=== PATIENT | female | born 1995 | race African-American/Black ===

== ENCOUNTER 2021-10-16 09:47 | Emergency (ER) | payer OTHER, SELFPAY ==
--- NOTE | ~2021-10-16 | XR_ITS ---
XR ankle RT min 3V DATE: 10/16/2021 10:24 INDICATION: Right ankle injury from fall 2 days ago. Pain and swelling. TECHNIQUE: 4 views COMPARISON: None FINDINGS: There is mild lateral soft tissue swelling of the ankle. No fracture or dislocation of the ankle or disruption of the ankle mortise is detected. IMPRESSION: Mild lateral soft tissue swelling; no fracture or dislocation Reviewed, dictated and finalized at location A.
[2021-10-16 09:49] VITALS: BP 127/89; PULSE 87; RESP 14; TEMP 36.3; O2SAT 100
--- NOTE | 2021-10-16 11:10 | ED.GENADULT ---
HPI - General Adult General Chief complaint: Extremity Injury, Lower Stated complaint: fell off parade float, right ankle injury Time Seen by Provider: 10/16/21 10:57 History of Present Illness HPI narrative: 26-year-old female presenting to the emergency department for evaluation of right ankle pain. Patient states yesterday she fell off a parade float twice and injured her right ankle. Patient denies striking her head denies any loss conscious. Related Data Allergies Allergy/AdvReac Type Severity Reaction Status Date / Time nitrofurantoin Allergy Severe Swelling Verified 10/16/21 09:48 [From Macrobid] of Lip/Tongue/Throat Review of Systems Review of Systems: CONSTITUTIONAL: Denies fever, chills, or sweats. EYES: Denies visual changes, redness, or discharge. ENT: Denies rhinorrhea, congestion, sore throat, or otalgia. CARDIOVASCULAR: Denies chest pain, palpitations, or edema. RESPIRATORY: Denies cough or dyspnea. GASTROINTESTINAL: Denies abdominal pain, nausea, vomiting, or diarrhea. GENITOURINARY: Denies dysuria or hematuria. SKIN: Denies rash or itching. MUSCULOSKELETAL: See HPI NEUROLOGIC: Denies headache, numbness, or weakness. PSYCHIATRIC: Denies anxiety or depression. Exam Narrative: APPEARANCE: Well appearing, no pain, no distress, well-nourished. HEAD: normocephalic, atraumatic. NECK: Supple. No adenopathy, no masses. RESPIRATORY: Airway patent, respirations nonlabored. Clear to auscultation bilaterally, no rales, rhonchi, wheezing. CARDIOVASCULAR: Regular rate and rhythm without murmurs rubs or gallops. ABDOMINAL: Soft, nontender, nondistended, normal bowel sounds MUSCULOSKELETAL: No tenderness to proximal or distal knee. No tenderness to proximal tib-fib. Patient does have tenderness to lateral and medial ankle. No tenderness to foot NEURO: Alert. Cranial nerves II through XII intact. Grossly intact SKIN: Warm, dry. Normal Color Course Vital Signs Vital signs: Vital Signs Temperature 97.4 F L 10/16/21 09:49 Pulse Rate 87 10/16/21 09:49 Respiratory Rate 14 10/16/21 09:49 Blood Pressure 127/89 10/16/21 09:49 Pulse Oximetry 100 10/16/21 09:49 Oxygen Delivery Room Air 10/16/21 09:49 Temperature 97.4 F L 10/16/21 09:49 Pulse Rate 87 10/16/21 09:49 Respiratory Rate 14 10/16/21 09:49 Blood Pressure 127/89 10/16/21 09:49 Pulse Oximetry 100 10/16/21 09:49 Oxygen Delivery Room Air 10/16/21 09:49 Medical Decision Making Vital Signs Vital Signs: Vital Signs Temperature 97.4 F L 10/16/21 09:49 Pulse Rate 87 10/16/21 09:49 Respiratory Rate 14 10/16/21 09:49 Blood Pressure 127/89 10/16/21 09:49 Pulse Oximetry 100 10/16/21 09:49 Oxygen Delivery Room Air 10/16/21 09:49 Temperature 97.4 F L 10/16/21 09:49 Pulse Rate 87 10/16/21 09:49 Respiratory Rate 14 10/16/21 09:49 Blood Pressure 127/89 10/16/21 09:49 Pulse Oximetry 100 10/16/21 09:49 Oxygen Delivery Room Air 10/16/21 09:49 Imaging Data Radiologist's impression: Impressions Ankle X-Ray 10/16/21 10:40 IMPRESSION: Mild lateral soft tissue swelling; no fracture or dislocation Discharge Plan Discharge Clinical Impression: Ankle sprain and strain Patient Disposition: Home, Self-Care Condition: Stable Instructions: Antibiotic Form, Ankle Sprain (ED) Additional Instructions: Michael wrap as directed. Tylenol and ibuprofen for pain control. Crutches for limited weightbearing for the next 3 to 5 days. Have close follow-up with your primary care physician. Follow-up/Referrals: George Crenshaw MD [Physician] - PHYSICIAN NOT ON STAFF,NONSTAFF [Primary Care Provider] - Stand Alone Forms: Work/School Release IP
== END 2021-10-16 11:30 | disposition home or self-care (01) ==
PROVIDERS: Emergency Provider Emergency Medicine
DX: S93.401A Sprain of unspecified ligament of right ankle, initial encounter (principal); S96.911A Strain of unspecified muscle and tendon at ankle and foot level, right foot, initial encounter; W17.89XA Other fall from one level to another, initial encounter
CPT/HCPCS: 73610; 99283

== ENCOUNTER 2022-02-09 12:47 | Emergency (ER) | payer OTHER, SELFPAY ==
--- NOTE | 2022-02-09 13:21 | ED.FEMALEGU ---
HPI - Female Genitourinary General Chief complaint: Urogenital-Female Stated complaint: grey infmorales Time Seen by Provider: 02/09/22 14:30 Source: patient and RN notes reviewed Mode of arrival: ambulatory Limitations: no limitations History of Present Illness HPI Narrative: 26-year-old female presents with concern for 1 day history of dysuria, pressure with urination. She reports history of UTIs. She reports she took a leftover medication that she had for UTI that turned her urine orange. MD elicited complaint: UTI Related Data Allergies Allergy/AdvReac Type Severity Reaction Status Date / Time nitrofurantoin Allergy Severe Swelling Verified 10/16/21 09:48 [From Macrobid] of Lip/Tongue/Throat Review of Systems Review of Systems: CONSTITUTIONAL: Denies malaise, chills, sweats, or fever. CARDIOVASCULAR: Denies chest pain, palpitations, or edema. RESPIRATORY: Denies cough or dyspnea. GASTROINTESTINAL: Denies abdominal pain, nausea, vomiting, diarrhea GENITOURINARY: Reports dysuria, suprapubic pressure. Denies wounds, urgency, flank pain or hematuria. SKIN: Denies rash or itching. MUSCULOSKELETAL: Denies back pain or myalgia. All systems reviewed & are unremarkable except as noted in HPI and below PMFSH Comments At time of signature, agree with nursing past medical, surgical, social and family history. There is no relevant family history pertinent to the presenting complaint Exam Narrative: GENERAL: Well-appearing, well-nourished, and in no acute distress. HEAD: Normocephalic. EYES: PERRLA, conjunctivae clear. NECK: Supple. No lymphadenopathy CHEST: Clear to auscultation. No respiratory distress. HEART: Regular rate and rhythm. ABDOMEN: Soft, nontender upon palpation, nondistended, normal active bowel sounds, no palpable or pulsatile masses, no guarding. No CVA tenderness SKIN: Warm, dry, no rash. NEURO: Alert and oriented x3. PSYCH: Normal mood and affect Course Course Emergency Course: Patient is aware of diagnosis, understands and agrees to treatment plan. Anticipatory guidance given. Patient agrees to follow-up as directed and is aware of reasons to seek care at the emergency department. Portions of this record may have been created with voice recognition software Level of Care: Express Care Visit Vital Signs Vital signs: Vital Signs Temperature 98.5 F 02/09/22 14:08 Pulse Rate 75 02/09/22 14:08 Respiratory Rate 16 02/09/22 14:08 Blood Pressure 119/77 02/09/22 14:08 Pulse Oximetry 99 02/09/22 14:08 Oxygen Delivery Room Air 02/09/22 14:08 Temperature 98.5 F 02/09/22 14:08 Pulse Rate 75 02/09/22 14:08 Respiratory Rate 16 02/09/22 14:08 Blood Pressure 119/77 02/09/22 14:08 Pulse Oximetry 99 02/09/22 14:08 Oxygen Delivery Room Air 02/09/22 14:08 Reviewed. MDM - Female Genitourinary MDM Narrative Medical decision making narrative: Exam findings and UA show no acute concerns or changes; patient is non-toxic appearing and is in no distress. Patient is appropriate for outpatient treatment and follow-up. Differential Diagnosis Differential diagnosis: Likely urinary tract infection and cystitis Lab Data Labs: Urine Glucose Negative Reference Range: Negative Urine Bilirubin Negative Reference Range: Negative Urine Ketone Negative Reference Range: Negative Urine Specific [place] 1.015 Reference Range:1.001-1.035 Urine Blood 2+ Reference Range: Negative * * Urine pH 6.5 Reference Range: 5.0-9.0 Urine
[2022-02-09 14:08] VITALS: BP 119/77; PULSE 75; RESP 16; TEMP 36.9; O2SAT 99
== END 2022-02-09 14:40 | disposition home or self-care (01) ==
PROVIDERS: Emergency Provider Nurse Practitioner
DX: R30.0 Dysuria (principal); R10.30 Lower abdominal pain, unspecified
CPT/HCPCS: 81003; 87077; 87086; 87186; 99213; G0463